=== PATIENT | male | born 1935 | race American Indian/Alaskan Native ===

== ENCOUNTER 2017-12-29 14:51 | Outpatient (CLI) | payer MEDICARE ==
--- NOTE | 2017-12-29 16:42 | Mammography Report ---
BILATERAL DIGITAL DIAGNOSTIC MAMMOGRAM with CAD and RIGHT BREAST ULTRASOUND: 12/29/17 CLINICAL: 82-year-old male with a left breast mass. COMPARISON:None. FINDINGS: The breasts are heterogeneously dense, which may obscure small masses in the left rest is larger and more dense than the right. A right upper outer partially circumscribed round focal asymmetry approximately 2.5 cm from the nipple. No architectural distortion or suspicious calcifications. Ultrasound of the left breast (including all four quadrants and the retroareolar area) was performed and demonstrated diffuse fibroglandular structures consistent with pronounced diffuse benign gynecomastia. No mass, cyst or shadowing. Ultrasound of the right breast (including all four quadrants and the retroareolar area) was performed and demonstrated moderate retroareolar fibroglandular structures consistent with moderate benign gynecomastia. No mass, cyst or shadowing. No ultrasound finding to correlate with the partially circumscribed 4 mm focal asymmetry. IMPRESSION: Bilateral benign gynecomastia, left worse than right. No suspicious finding. BI-RADS CATEGORY: 2 -- Benign RECOMMENDATION: Clinical follow-up. COMMENT: Patient follow-up letters are generated by our [employer] application.
== END 2017-12-29 14:52 | disposition home or self-care (01) ==
LOC: SPVWC 14:51
DX: N62 Hypertrophy of breast (principal); N64.89 Other specified disorders of breast
CPT/HCPCS: 77066